=== PATIENT | female | born 1985 | race Hispanic/Latino ===

== ENCOUNTER 2020-01-15 10:30 | Observation (INO) | payer OTHER ==
[~2020-01-15] VITALS: Ht 160 cm; Wt 91.2 kg
[2020-01-15] MEDS ORDERED: LACTATED RINGERS 1000ML 1,000 ML IV PRN (10:58)
[2020-01-15] MEDS ORDERED: AMPICILLIN 1GM+NS 50ML 50 ML IV SCH (11:00)
[2020-01-15] MEDS ORDERED: AMPICILLIN 2GM+NS 100ML 100 ML IV SCH (11:00)
[2020-01-15 11:09] LABS: APPEARANCE,URINE Clear (CLEAR); BILIRUBIN,URINE Negative (NEGATIVE); COLOR,URINE Dark Yellow (YELLOW); GLUCOSE, URINE (UA) Negative (NEGATIVE); KETONES,URINE Negative (NEGATIVE); LEUKOCYTE ESTERASE ,URINE Trace (NEGATIVE); NITRATE,URINE Negative (NEGATIVE); OCCULT BLOOD,URINE Negative (NEGATIVE); PROTEIN,URINE Negative (NEGATIVE)
[2020-01-15 11:27] LABS: BACTERIA,URINE Few /HPF (None Seen); RBC,URINE None Seen /HPF (0-1); WBC,URINE 0-1 /HPF (0-1)
[2020-01-15 12:00] LABS: MEAN CORPUSCULAR HEMOGLOBIN 27.5 pg (27.0-33.0); MEAN CORPUSCULAR HGB CONC 33.3 g/dL (32.0-36.0); MEAN CORPUSCULAR VOLUME 82.6 fL (79-99); RED BLOOD CELL COUNT(AUTO) 4.72 MIL/uL (4.00-5.50); RED CELL DISTRIBUTION WIDTH 14.3 % (11.0-15.5); WHITE BLOOD COUNT (AUTO) 5.7 K/uL (4.8-10.8)
[2020-01-15 12:18] LABS: INR 0.88 (0.85-1.15); PARTIAL THROMBOPLASTIN TIME 24.7 SEC (26.3-35.5); PROTHROMBIN TIME 9.6 SEC (9.6-11.6)
[2020-01-15 12:20] LABS: CREATININE 0.7 mg/dL (0.5-1.5); POTASSIUM 4.7 mmol/L (3.5-5.1)
[2020-01-15 12:22] LABS: ALBUMIN 2.9 g/dL (3.5-5.0); BILIRUBIN,TOTAL 0.6 mg/dL (0.2-1.0); URIC ACID 4.8 mg/dL (2.6-7.2)
[2020-01-16 08:09] LABS: HEPATITIS Bs ANTIGEN SCREEN P Negative (Negative)
== END 2020-01-15 12:52 | disposition home or self-care (01) ==
LOC: LDH 10:30
PROVIDERS: ADMIT Obstetrics & Gynecology; ATTEND Obstetrics & Gynecology
DX: O26.893 Other specified pregnancy related conditions, third trimester (principal); R03.0 Elevated blood-pressure reading, without diagnosis of hypertension; Z3A.38 38 weeks gestation of pregnancy
CPT/HCPCS: 36415; 80053; 81001; 84550; 85027; 85384; 85610; 85730; 86592; 86850; 86900; 86901; 87340; G0378 ×3; J0290; J7120; 96360

== ENCOUNTER 2020-01-21 04:35 | Inpatient (IN) | payer OTHER ==
[~2020-01-21] VITALS: Ht 157.5 cm; Wt 92.5 kg
[2020-01-21] VITALS (11 sets, daily range): BP systolic 119–140; BP diastolic 70–80
[2020-01-21] MEDS ORDERED: LACTATED RINGERS 1000ML 1,000 ML IV PRN (04:41)
[2020-01-21] MEDS: OXYTOCIN-LR 20 UNITS/1000 ML 1,000 ML IV SCH (04:45)
[2020-01-21] MEDS ORDERED: AMPICILLIN 2GM+NS 100ML 100 ML IV SCH ×2 (04:45→06:00)
[2020-01-21 05:32] LABS: APPEARANCE,URINE Clear (CLEAR); BILIRUBIN,URINE Negative (NEGATIVE); COLOR,URINE Yellow (YELLOW); GLUCOSE, URINE (UA) Negative (NEGATIVE); KETONES,URINE Negative (NEGATIVE); LEUKOCYTE ESTERASE ,URINE Moderate (NEGATIVE); NITRATE,URINE Negative (NEGATIVE); OCCULT BLOOD,URINE Trace (NEGATIVE); PROTEIN,URINE Negative (NEGATIVE)
[2020-01-21 05:39] LABS: AMPHET/METH SCREEN,URINE NEGATIVE (NEGATIVE); BARBITURATE SCREEN, URINE NEGATIVE (NEGATIVE); BENZODIAZEPINES SCREEN,URINE NEGATIVE (NEGATIVE); CANNABINOID SCREEN,URINE NEGATIVE (NEGATIVE); COCAINE SCREEN,URINE NEGATIVE (NEGATIVE); OPIATE SCREEN,URINE NEGATIVE (NEGATIVE); PHENCYCLIDINE SCREEN,URINE NEGATIVE (NEGATIVE)
[2020-01-21 05:46] LABS: BACTERIA,URINE Moderate /HPF (None Seen); RBC,URINE None Seen /HPF (0-1); SQUAMOUS EPITHELIAL CELL,UR Moderate /HPF (0-2)
[2020-01-21 06:02] LABS: MEAN CORPUSCULAR HGB CONC 34.1 g/dL (32.0-36.0); MEAN CORPUSCULAR VOLUME 82.2 fL (79-99); RED BLOOD CELL COUNT(AUTO) 4.5 MIL/uL (4.00-5.50); RED CELL DISTRIBUTION WIDTH 14.3 % (11.0-15.5); WHITE BLOOD COUNT (AUTO) 6.4 K/uL (4.8-10.8)
[2020-01-21] MEDS ORDERED: PREN1TAB80 PO (06:21)
[2020-01-21] MEDS ORDERED: CALC500T7 PO (06:21)
[2020-01-21] MEDS ORDERED: OXYTOCIN 10 USP UNITS/ML 20 UNIT in LACTATED RINGERS 1000ML 1,000 ML IV SCH (06:30)
[2020-01-21] MEDS: MEPERIDINE-PF 25 MG/ML SYG IVP SCH (07:30)
[2020-01-21] MEDS: PROMETHAZINE HCL 25 MG/ML 1ML AMPULE IM SCH (07:30)
[2020-01-21] MEDS ORDERED: MEPERIDINE-PF 25 MG/ML SYG ONE (07:31)
[2020-01-21] MEDS ORDERED: ACETAMINOPHEN 325 MG TAB PO PRN (09:00)
[2020-01-21] MEDS ORDERED: BENZOCAINE/LANOLIN/ALOE VERA 60 ML AEROSOL TP PRN (09:00)
[2020-01-21] MEDS ORDERED: LANOLIN 30GM OINTMENT TP PRN (09:00)
[2020-01-21] MEDS ORDERED: ACETAMINOPHEN-CODEINE 300/30MG TAB PO PRN (09:00)
[2020-01-21] MEDS ORDERED: WITCH HAZEL 1 PAD TP PRN (09:00)
[2020-01-21] MEDS ORDERED: IBUPROFEN 600 MG TABLET ONE (09:01)
[2020-01-21] MEDS ORDERED: DOCUSATE SODIUM 100 MG CAP PO ONE (09:01)
[2020-01-21] MEDS: DOCUSATE SODIUM 100 MG CAP PO SCH ×2 (09:07→21:38)
--- NOTE | 2020-01-21 09:45 | NUR ---
2 HOUR [id number] MLS
[2020-01-21] MEDS: AMPICILLIN 1GM+NS 50ML 50 ML IV SCH (10:00)
[2020-01-21] MEDS: IBUPROFEN 600 MG TABLET PO PRN (21:39)
[2020-01-22 03:24] VITALS: BP 105/52
[2020-01-22] MEDS: OXYTOCIN-LR 20 UNITS/1000 ML 1,000 ML IV SCH (04:45)
[2020-01-22 05:37] LABS: HEMATOCRIT 34.2 % (36-48); MEAN CORPUSCULAR HEMOGLOBIN 27.1 pg (27.0-33.0); MEAN CORPUSCULAR HGB CONC 32.7 g/dL (32.0-36.0); MEAN CORPUSCULAR VOLUME 82.6 fL (79-99); RED BLOOD CELL COUNT(AUTO) 4.14 MIL/uL (4.00-5.50); RED CELL DISTRIBUTION WIDTH 14.5 % (11.0-15.5); WHITE BLOOD COUNT (AUTO) 7.8 K/uL (4.8-10.8)
[2020-01-22 07:13] LABS: HEPATITIS Bs ANTIGEN SCREEN P Negative (Negative)
[2020-01-22] MEDS: MEPERIDINE-PF 25 MG/ML SYG IVP SCH (07:30)
[2020-01-22] MEDS: PROMETHAZINE HCL 25 MG/ML 1ML AMPULE IM SCH (07:30)
[2020-01-22 07:56] VITALS: BP 102/66
--- NOTE | 2020-01-22 08:57 | NUR ---
[employer] RELEASE Sw recd call from Magan Cormierz, REGISTERED NURSE STEP DOWN [phone] at [facility]. Pt is to release son to family member after discharge back to facility. Facility asking that we not contact family until after pt has left our hospital. [facility] to fax paperwork with information on family member that will be picking up the baby. Informed Magan that we would have to have pt sign [employer] Release form here in order for [facility] to release baby to family. Magan voiced understanding. Sw contacted [facility]. She is not able to meet with pt for Third Republican Release signing until after 10:30am Sw met with pt and officers at bedside. Informed pt that I have spoke to [facility] and am waiting on paperwork to be faxed. Educated on Third [employer] Release Form. All Voiced understanding. Pt states her brother will be coming for baby Sw recd faxed form for [facility]. Baby to be released to pt's brother Rudi Morales [address] [facility] [phone]
[2020-01-22] MEDS: IBUPROFEN 600 MG TABLET PO PRN (09:27)
[2020-01-22] MEDS: DOCUSATE SODIUM 100 MG CAP PO SCH (09:27)
[2020-01-22] MEDS: AMPICILLIN 1GM+NS 50ML 50 ML IV SCH (10:00)
--- NOTE | 2020-01-22 11:20 | NUR ---
[employer] RELEASE Milla, Cleo Hawk, and Delma nurse met with pt and completed [employer] alliance party Release form for baby to dc to pt's brother Rudi Morales. Once pt is discharged and left the building, SW to contact brother and notify of and dc tomorrow.
--- NOTE | 2020-01-22 11:35 | NUR ---
DISCHARGE INSTRUCTIONS REVIEWED WITH PATIENT AND GUARD AT BEDSIDE. RX FOR IBUPROFEN 600MG IN DISCHARGE FOLDER LEFT TO GUARD.
--- NOTE | 2020-01-22 11:40 | NUR ---
REPORT GIVEN TO ARCADIO ARCEO LVN AT [facility] ([phone] EXT [phone]) ON PATIENT.
[2020-01-22 11:45] VITALS: BP 116/90
[2020-01-22] MEDS ORDERED: MEASLES/MUMPS/RUBELLA VACCINE, LIVE 0.5 ML/VIAL SQ SCH (12:15)
--- NOTE | 2020-01-22 13:05 | NUR ---
PATIENT LEFT UNIT VIA WHEELCHAIR ACCOMPANIED BY TWO GUARDS. CUSTODIAL CENTER VEHICLE USED FOR TRANSPORTATION. BABY IN NURSERY. NO COMPLAINTS OR CONCERNS ADDRESSED FROM PATIENT ON DISCHARGE.
== END 2020-01-22 13:05 | DRG 807 ==
LOC: LDH 04:35 → EEVIPCON 04:35 → WSH 08:30
PROVIDERS: ADMIT Obstetrics & Gynecology; ATTEND Obstetrics & Gynecology
PROC: 10E0XZZ Delivery of Products of Conception, External Approach (ICD-10-PCS; principal; 2020-01-21)
PROC: 10907ZC Drainage of Amniotic Fluid, Therapeutic from Products of Conception, Via Natural or Artificial Opening (ICD-10-PCS; 2020-01-21)
PROC: 3E0134Z Introduction of Serum, Toxoid and Vaccine into Subcutaneous Tissue, Percutaneous Approach (ICD-10-PCS; 2020-01-22)
DX: O99.824 Streptococcus B carrier state complicating childbirth (principal); Z37.0 Single live birth; Z23 Encounter for immunization; Z83.3 Family history of diabetes mellitus; Z3A.38 38 weeks gestation of pregnancy
CPT/HCPCS: 36415; 80305; 81001; 85027; 86592; 86850; 86900; 86901; 87088; 87340; A4351; G0378; J0290; J2175; J2590; J7120